=== PATIENT | female | born 1950 | race African-American/Black ===

== ENCOUNTER 2017-12-28 14:04 | Outpatient (CLI) | payer MEDICARE, BC ==
--- NOTE | 2017-12-28 16:27 | BD ---
DEXA DENSITOMETRY: HISTORY: A 67-year-old female for postmenopausal osteoporosis screening. FINDINGS: LUMBAR SPINE BMD (g/cm2) T-SCORE L1 1.059 0.6 L2 1.149 1.1 L3 1.129 0,4 L4 1.089 0.3 TOTAL 1.105 0.5 The bone mineral density of the lumbar spine from 02/28/2014 is recorded at 1.037. FEMORAL NECK 0.905 0.5 TOTAL 1,048 0.9 The femoral neck density from 02/28/2014 is recorded at 0.906. IMPRESSION: The bone mineral density of the lumbar spine and femoral neck are within the normal range. The 10 year fracture risk for major osteoporotic fracture is 4.7% and for a hip fracture is 0.1%. POS: [facility]
== END 2017-12-28 14:05 | disposition home or self-care (01) ==
LOC: BICMAMMO 14:04
PROVIDERS: ATTEND Internal Medicine
DX: Z12.31 Encounter for screening mammogram for malignant neoplasm of breast (principal); Z13.820 Encounter for screening for osteoporosis; R92.1 Mammographic calcification found on diagnostic imaging of breast
CPT/HCPCS: 77063; 77067; 77080

== ENCOUNTER 2018-08-29 15:20 | Outpatient (CLI) | payer MEDICARE, BC ==
--- NOTE | 2018-08-29 15:41 | RAD ---
Chest 2 views HISTORY: Chest pain. FINDINGS: Cardiac silhouette and pulmonary vasculature are unremarkable. Mediastinum is midline. No c onfluent airspace consolidation, pneumothorax, or pleural fluid are apparent. IMPRESSION: No active cardiopulmonary abnormalities are demonstrated.
== END 2018-08-29 15:21 | disposition home or self-care (01) ==
LOC: BICRAD 15:20
PROVIDERS: ATTEND Internal Medicine
DX: R07.89 Other chest pain (principal)
CPT/HCPCS: 71046

== ENCOUNTER 2019-01-16 19:14 | Outpatient (CLI) | payer BC, MEDICARE ==
--- NOTE | 2019-01-16 19:51 | RAD ---
EXAM: Chest Two Views 01/16/2019 7:48 PM HISTORY: Cough rule out pneumonia COMPARISON: Prior exam dated August 29, 2018 FINDINGS: Heart: Mild cardiomegaly is stable Pulmonary vessels: Normal. Costophrenic angles: Clear. Lungs: Lungs remain hyperinflated. Mild scarring involving the lung bases appear stable. Pneumothorax: None. Osseous structures:Intact. Additional findings: None. IMPRESSION: No significant acute intrathoracic disease.
== END 2019-01-16 19:15 | disposition home or self-care (01) ==
LOC: SCSRAD 19:14
PROVIDERS: ATTEND Internal Medicine
DX: R05 Cough (principal); R11.2 Nausea with vomiting, unspecified; Z79.899 Other long term (current) drug therapy
CPT/HCPCS: 36415; 71046; 80053; 83690; 85007; 85027

== ENCOUNTER 2020-08-01 12:05 | Emergency (ER) | payer BC ==
[2020-08-01 13:54] LABS: #Basophils 0.1 thou/uL (0.0-0.2); #Eosinphils 0.1 thou/uL (0.0-0.7); #Lymphocytes 2.1 thou/uL (1.20-3.40); #Monocytes 0.5 thou/uL (0.11-0.59); #Neutrophils 5.7 thou/uL (1.40-6.50); %Basophils 0.9 % (0.0-1.0); %Eosinophils 1.6 % (0.0-10.0); %Lymphocytes 24.6 % (21.0-51.0); %Monocytes 5.7 % (0.0-10.0); %Neutrophils 67.3 % (42.0-75.0); Hemoglobin 11.4 g/dL (12.0-16.0); Mean Corpuscular HGB CONC 31.4 g/dL (32.0-36.0); Mean Corpuscular Hemoglobin 23.3 pg (27.0-31.0); Mean Corpuscular Volume 74.1 fL (78.0-98.0); Mean Platelet Volume 8.6 fL (7.4-10.4); Platelet Count 232 thou/uL (130-400); RBC Distribution Width 14.7 % (11.5-14.5); Red Blood Cell (RBC) Count 4.91 mill/uL (4.20-5.40); White Blood Cell (WBC) Count 8.4 thou/uL (4.8-10.8)
[2020-08-01 14:11] LABS: Hypochromia SLIGHT = 6-15 cells (100X) (0-5/hpf); MDiff Complete? YES; Microcytosis SLIGHT = 6-15 cells (100X) (0-5/hpf); Ovalocytes SLIGHT = 2-5 cells (100X) (0-1/hpf); Platelet Morphology Comment Appears Adequate; Polychromasia SLIGHT = 2-3 cells (100X) (0-2/hpf)
[2020-08-01 14:16] LABS: ALT (SGPT) 22 U/L (8-55); AST (SGOT) 23 U/L (5-34); Albumin 3.9 g/dL (3.4-4.8); Alkaline Phosphatase 84 U/L (40-110); Anion Gap 13 mmol/L (10-20); BUN (Urea Nitrogen) 17 mg/dL (9.8-20.1); Bilirubin, Total 0.3 mg/dL (0.2-1.2); Calc. Creatinine Clearance 0 mL/min (70-130); Calcium 9.9 mg/dL (7.8-10.44); Carbon Dioxide 28 mmol/L (23-31); Chloride 102 mmol/L (98-107); Globulin 3.8 g/dL (2.4-3.5); Glucose 195 mg/dL (83-110); Potassium 3.8 mmol/L (3.5-5.1); Protein, Total 7.7 g/dL (5.8-8.1); Sodium 139 mmol/L (136-145)
== END 2020-08-01 15:43 | disposition home or self-care (01) ==
LOC: ERS 12:05
DX: R06.00 Dyspnea, unspecified (principal); E11.9 Type 2 diabetes mellitus without complications; I10 Essential (primary) hypertension; E78.00 Pure hypercholesterolemia, unspecified
CPT/HCPCS: 36415; 71045; 80053; 83880; 84484; 85025; 85379; 93005; 94760

== ENCOUNTER 2020-09-09 06:02 | Day surgery (SDC) | payer BC ==
[2020-09-06 10:40] VITALS: BMI 34.7
[2020-09-09] MEDS ORDERED: PROPOFOL 40 ML ONE (07:55)
== END 2020-09-09 09:43 | disposition home or self-care (01) ==
LOC: SDC 06:02
PROVIDERS: ATTEND Internal Medicine Cardiovascular Disease
PROC: B24BZZ4 Ultrasonography of Heart with Aorta, Transesophageal (ICD-10-PCS; principal; 2020-09-09)
DX: I63.9 Cerebral infarction, unspecified (principal); I08.1 Rheumatic disorders of both mitral and tricuspid valves; Q21.1 Atrial septal defect; I70.0 Atherosclerosis of aorta; Z79.4 Long term (current) use of insulin; Z79.82 Long term (current) use of aspirin; Z79.899 Other long term (current) drug therapy; Z88.1 Allergy status to other antibiotic agents; Z88.8 Allergy status to other drugs, medicaments and biological substances; Z91.040 Latex allergy status; Z91.041 Radiographic dye allergy status
CPT/HCPCS: 93312; J2704